=== PATIENT | male | born 1945 | race Hispanic/Latino ===

== ENCOUNTER 2019-05-01 15:15 | Emergency (ER) | payer MEDICARE ==
[~2019-05-01] VITALS: Ht 172.7 cm; Wt 94.3 kg
--- OUTSIDE RECORDS SUMMARY | 2019-05-01 15:17 | XMS REPORT | Clinical Summary ---
Author Author [facility] Address Unknown Phone Unavailable Care Team Providers Care Marketing Traffic Manager Name Role Phone Sharpless PCP Allergies No Known Allergies Medications End Date Status Medication Sig Dispensed Refills Start Date Active metFORMIN (GLUMETZA) 1000 Take 1,000 mg 0 MG (MOD) 24 hr tablet by mouth 2 (two) times daily with breakfast and dinner. Active glimepiride (AMARYL) 4 MG Take 4 mg by 0 tablet mouth every morning before breakfast. Active lisinopril Take 20 mg by 0 (PRINIVIL,ZESTRIL) 20 MG mouth daily. tablet Active atenolol (TENORMIN) 50 MG Take 50 mg by 0 tablet mouth daily. Active hydroCHLOROthiazide Take 12.5 mg 0 (MICROZIDE) 12.5 mg by mouth capsule daily. Active NIFEdipine (ADALAT CC) 60 Take 60 mg by 0 MG 24 hr tablet mouth daily. Active tamsulosin (FLOMAX) 0.4 Take 0.4 mg 0 mg Cp24 24 hr capsule by mouth daily. Active finasteride (PROSCAR) 5 Take 5 mg by 0 mg tablet mouth daily. Active aspirin 81 MG EC tablet Take 81 mg by 0 mouth daily. Active folic acid (FOLVITE) 1 MG Take 1 mg by 0 tablet mouth daily. Active omega-3 fatty Take 1 tablet 0 acids-vitamin E 1,000 mg by mouth Cap daily. Active niacin 500 MG tablet Take 500 mg 0 by mouth daily with breakfast. Active Problems Not on file Social History Date Tobacco Use Types Packs/Day Years Used Never Assessed Sex Assigned at Date Recorded Not on file Industry Job Start Date Occupation Not on file Not on file Not on file Travel End Travel History Travel Start No recent travel history available. Last Filed Vital Signs Not on file Plan of Treatment Not on file Results Not on fileafter 04/30/2018 Insurance Payer Benefit Subscriber ID Type Phone Address [facility]V
--- OUTSIDE RECORDS SUMMARY | 2019-05-01 15:17 | XMS REPORT ---
Author Author [facility] Address Unknown Phone Unavailable Care Team Providers Care Time Lock Expert Name Role Phone CHER LUBIN Unavailable Unavailable Problems This patient has no known problems. Allergies, Adverse Reactions, Alerts This patient has no known allergies or adverse reactions. Medications This patient has no known medications. Results Test Description Test Time Test Comments Text Results Atomic Results Result Comments APTT 2016-10-30 11:14:00 PARTIAL THROMBOPLASTIN TIME (CHAUNCEY) (test xkwp=154) 31.4 seconds 22.5-36.0 PROTHROMBIN TIME/[id number] 11:13:00* Test Item Value Reference Range Comments PROTIME (CHAUNCEY) (test yblk=319) 13.0 seconds 11.7-14.7 INR (BEAKER) (test qugz=598) 1.0 <=5.9 RECOMMENDED COUMADIN/WARFARIN INR THERAPY RANGESSTANDARD DOSE: 2.0 - 3.0 Inclu reji: PROPHYLAXIS for venous thrombosis, systemic embolization; TREATMENT for rafa ous thrombosis and/or pulmonary embolus.HIGH RISK: Target INR is 2.5-3.5 for pat ients with mechanical heart valves.PLATELET [id number] 11:11:00* Test Item Value Reference Range Comments PLATELET COUNT (CHAUNCEY) (test ntyr=196) 225 K/CU MM 150-430
--- NOTE | 2019-05-01 16:46 | Diagnostic Imaging Report ---
Examination: CT head without contrast Clinical Indication: Fall with head injury. Technique: Transaxial noncontrast images from the skull base through the vertex were obtained. Sagittal and coronal reformatted images were done. Dose modulation, iterative reconstruction, and/or weight based adjustment of the mA/kV was utilized to reduce the radiation dose to as low as reasonably achievable. Comparison: None. Findings: Scalp: Posterior midline scalp hematoma Bones: Intact. No fractures. No blastic or lytic lesions. Brain sulci: Appropriate for patient's age. Ventricles: Normal in size and configuration. No hydrocephalus. Extra-axial space: No abnormalities. Parenchyma: No masses, hemorrhage, or acute or chronic cortical based vascular insults. Suprasellar region: No abnormalities. Craniocervical junction: The foramen magnum is patent. No Chiari one malformation. Impression: Posterior midline scalp hematoma. No acute intracranial abnormality. Signed by: Dr. Regina Hernández M.D. on 05/01/2019 4:43 PM
[2019-05-01 17:09] VITALS: BP 133/72
== END 2019-05-01 17:14 | disposition home or self-care (01) ==
LOC: FSED 15:15
DX: S00.03XA Contusion of scalp, initial encounter (principal); W18.30XA Fall on same level, unspecified, initial encounter; Y93.89 Activity, other specified; Y92.000 Kitchen of unspecified non-institutional (private) residence as the place of occurrence of the external cause; R05 Cough; I10 Essential (primary) hypertension; E11.9 Type 2 diabetes mellitus without complications; E78.5 Hyperlipidemia, unspecified; N40.0 Benign prostatic hyperplasia without lower urinary tract symptoms
CPT/HCPCS: 70450; 80053; 81003; 93005; 99284

== ENCOUNTER 2019-10-23 16:54 | Observation (INO) | payer MEDICARE ==
[~2019-10-23] VITALS: Ht 172.7 cm; Wt 96.7 kg
[2019-10-23] MEDS ORDERED: HYDRALAZINE HCL 20 MG/ML VIAL IV ONE (17:15)
[2019-10-23] MEDS ORDERED: ASPIRIN 81 MG CHEW TAB PO ONE (17:15)
[2019-10-23] MEDS ORDERED: NITROGLYCERIN 2% OINT 1 GM PKT TOP ONE (17:15)
[2019-10-23] MEDS ORDERED: ACETAMINOPHEN 325 MG TAB PO ONE (17:15)
[2019-10-23] MEDS ORDERED: FAMOTIDINE 20 MG/2 ML VIAL IV ONE ×2 (17:15→17:29)
[2019-10-23] MEDS ORDERED: ONDANSETRON HCL INJ 2MG/ML 2ML 2 MG/ML VIAL IV PRN ×2 (17:15→19:45)
[2019-10-23] MEDS ORDERED: LISINOPRIL10 MG PO (17:18)
[2019-10-23] MEDS ORDERED: ASPIR 8181 MG (17:18)
[2019-10-23] MEDS ORDERED: NIACIN500 M2 PO (17:18)
[2019-10-23] MEDS ORDERED: NEPHRO-VITE TABL1 EA PO (17:18)
[2019-10-23] MEDS ORDERED: GLIMEPIRIDE2 MG PO (17:18)
[2019-10-23] MEDS ORDERED: METFORMIN HCL500 MG PO (17:18)
[2019-10-23] MEDS ORDERED: LOVASTATIN10 MG (17:18)
[2019-10-23] MEDS ORDERED: HYDROCHLOROTHIA25 MG (17:18)
[2019-10-23] MEDS ORDERED: FINASTERIDE5 MG PO (17:18)
[2019-10-23] MEDS ORDERED: FLOMAX0.4 MG PO (17:18)
[2019-10-23] MEDS ORDERED: ATENOLOL50 MG (17:18)
[2019-10-23] MEDS ORDERED: NIFEDIAC CC60 MG (17:18)
[2019-10-23] MEDS ORDERED: FISH OIL 1,0001 EAC2 (17:18)
[2019-10-23] MEDS ORDERED: ASPIRIN 81 MG CHEW TAB ONE (17:28)
[2019-10-23] MEDS ORDERED: HYDRALAZINE HCL 20 MG/ML VIAL ONE (17:28)
[2019-10-23] MEDS ORDERED: ONDANSETRON HCL INJ 2MG/ML 2ML 2 MG/ML VIAL ONE (17:29)
[2019-10-23] MEDS ORDERED: NITROGLYCERIN 2% OINT 1 GM PKT ONE (17:29)
[2019-10-23] MEDS ORDERED: ACETAMINOPHEN 325 MG TAB ONE (17:29)
--- NOTE | 2019-10-23 18:23 | Diagnostic Imaging Report ---
EXAM: CXR 1 [facility] DATE: 10/23/2019 12:00 AM INDICATION: ^chest pain ^[id number] ^[id number] COMPARISON: None FINDINGS: Lines and tubes: None Heart size normal. Mild atelectasis at the lung bases. No pulmonary consolidation, pleural effusion or pneumothorax. Upper abdomen unremarkable. No acute bony abnormality. IMPRESSION: No evidence for acute disease. Mild linear atelectasis at the lung bases. Signed by: Dr. Edward Gonzalez M.D. on 10/23/2019 6:20 PM
--- NOTE | 2019-10-23 18:37 | NUR ---
CALLED [facility] TO GET PT. TRANSFERRED TO [facility]. S/W [place], SHE STATES PER NUDE MODEL THEY ARE STILL ON BED SATURATION FOR MEDICAL AND TELE, SO NO BEDS AVAILABLE AT THIS TIME
--- NOTE | 2019-10-23 18:44 | NUR ---
PER PT. SEE IF [facility] HAS ANY BEDS. CALLED [facility], [facility] [place]. REQUESTED FACESHEET TO BE FAXED TO [phone]. FACESHEET FAXED REQUESTED
--- NOTE | 2019-10-23 19:08 | NUR ---
PT WOULD LIKE FOR ME TO CALL GRANDDAUGHTER ELOISE (A NURSE) AND GIVE HER ALL THE INFORMATION SHE NEEDS? CALL AND LEFT MESSAGE ON ELOISES PHONE?
--- NOTE | 2019-10-23 19:31 | NUR ---
CALLED [facility] FOR UPDATE?? STATE CALLED BED BOARD AND ARE AWAITING CALL BACK, REITERATED THAT WE CALLED 184? WAS TOLD BY DMITRY THAT THE BEDBOARD PEOPLE NEVER GOT THE FACE SHEET THAT WAS ASKED TO BE FAXED FROM US? TOLD HIM I HAD CONFIRMATION OF THEM RECEIVING THE FACE SHEET BUT WILL REFAX MORE FACE SHEETS, ALSO INQUIRED TO WHY TRANSFER CENTER DID NOT CALL US BACK AT THE 30 MIN INTERVAL TO INQUIRE ON WHETHER WE HAD EITHR FAXED THE INFO OR TO INFORM US THAT AN EXTENSION WAS NEEDED? FOR DOC TO DOC CALL BACK??
--- NOTE | 2019-10-23 19:38 | NUR ---
FACE SHEET FAXED 4 TIMES, WELL 2 CONFIRMATIONS (PROOF THAT FACESHEETS FAXED) TO [phone] (BEDBOARD).
[2019-10-23] MEDS ORDERED: ENOXAPARIN SODIUM INJ 100 MG/ML SYR SC STA (19:49)
--- NOTE | 2019-10-23 19:58 | NUR ---
[facility] CALLED FOR TRANSFER TO [facility] MIGUEL GIVEN 35-40 MIN ETA
[2019-10-23] MEDS ORDERED: DIPHENHYDRAMINE HCL INJ 50 MG/ML VIAL IV PRN (20:00)
[2019-10-23] MEDS ORDERED: ACETAMINOPHEN 325 MG TAB PO PRN (20:00)
[2019-10-23] MEDS ORDERED: ZOLPIDEM TARTRATE 5 MG TAB PO PRN (20:00)
[2019-10-23] MEDS: METOPROLOL TARTRATE 25 MG TAB PO SCH (20:16)
[2019-10-23] MEDS: FAMOTIDINE 20 MG TAB PO SCH (20:16)
[2019-10-23] MEDS ORDERED: METOPROLOL TARTRATE 50 MG TAB ONE (20:21)
[2019-10-23] MEDS ORDERED: FAMOTIDINE 20 MG TAB ONE (20:21)
[2019-10-23] MEDS ORDERED: ENOXAPARIN SODIUM INJ 100 MG/ML SYR SC ONE (20:21)
[2019-10-23] MEDS ORDERED: SIMVASTATIN 40 MG TAB PO SCH (21:00)
[2019-10-23 21:28] VITALS: BP 130/93
[2019-10-23] MEDS ORDERED: INSULIN GLARGINE 100 UNITS/ML VIAL SQ ONE (22:15)
[2019-10-23] MEDS ORDERED: DEXTROSE 50% SYRINGE 50 ML IV PRN (22:15)
[2019-10-24] VITALS (7 sets, daily range): BP systolic 133–163; BP diastolic 76–104
--- NOTE | 2019-10-24 00:49 | NUR ---
PATIENT REQUESTING [facility] FOR CARDIOLOG CONSULT, AED TRAINER ADVISED ME THAT ATTENDING HAS TO BE NOTIFIED SO THE ORDER CAN BE PLACED, THEN CALL [facility] FOR CONSULT AND CALL AND CANCEL CONSULT WITH MD OVALLES , WILL BE DONE IN THE AM DUE TO LATE ADMISSION
[2019-10-24] MEDS: NITROGLYCERIN 2% OINT 1 GM PKT TOP SCH ×3 (01:35→12:00)
--- NOTE | 2019-10-24 02:59 | NUR ---
CARDIAC ENZYMES DRAWN TAKEN TO LAB, AWAITING RESULTS
[2019-10-24 03:17] LABS: CREATINE KINASE MB 4.6 ng/mL (0-5.0)
[2019-10-24] MEDS: MORPHINE SULFATE 2 MG/ML SYR 1ML IV PRN ×2 (03:52→09:42)
--- NOTE | 2019-10-24 03:52 | NUR ---
GRANDDAUGHTER AT BEDSIDE, INFORM ME THAT PATIENT AWAKEN TO STATING CHEST PAIN RADIATING TO STOMACH, MORPHINE GIVEN, TELEMETRY READING SR 82, CARDIAC LABS PENDING
--- NOTE | 2019-10-24 06:00 | NUR ---
Diallo CANTU CALLED MADE AWARE OF CONSULT, ORDERED FOR PATIENT TO BE MADE NPO AFTER BREAKFAST THIS AM, ENDORSED TO NEXT SHIFT, REPORT GIVEN TO ONCOMING SHIFT RN, PATIENT AWAKE ALERT, REPORT MILD CHEST PAIN, RESTING COMFORTABLY IN BED WITH CALL LIGHT WITHIN REACH
[2019-10-24 06:27] LABS: CHOL/HDL RATIO 4.3 (3.9-4.7)
[2019-10-24] MEDS: INSULIN LISPRO 100 UNIT/1 ML 3ML VIAL SQ SCH ×4 (07:30→15:26)
[2019-10-24] MEDS ORDERED: ASPIRIN 325 MG TAB EC PO SCH (09:00)
[2019-10-24] MEDS: FAMOTIDINE 20 MG TAB PO SCH (10:04)
[2019-10-24] MEDS: METOPROLOL TARTRATE 25 MG TAB PO SCH ×2 (10:05→15:27)
[2019-10-24 10:44] LABS: CREATINE KINASE 259 IU/L (30-200)
--- NOTE | 2019-10-24 17:57 | Consultation ---
DATE OF CONSULTATION: 10/24/2019 REASON FOR CONSULTATION: Chest pain. HISTORY OF PRESENT ILLNESS: This is a 74-year-old male with history of hypertension, hyperlipidemia, diabetes, BPH. The patient presents to the [facility] ER with complaints of chest pain. Cardiology was consulted to evaluate the patient. Cardiac enzymes negative x2. EKG showing sinus rhythm with inverted T-waves in the lateral leads. The patient is seen in room with daughter at bedside, reports has been having left-sided chest discomfort, tightness for the past week, off and on, lasting few seconds. No associated symptoms and comes with and without activities. However, yesterday while watching TV reports the symptoms lasted little longer than usual. Therefore, he came to the ER for further evaluation. The patient reports that he sees Dr. Parada, Cardiology with [facility]. Reports having a stress test about a year ago with negative results. Currently, he is chest pain free. PAST MEDICAL HISTORY: Hypertension, diabetes, hyperlipidemia, BPH. PAST SURGICAL HISTORY: Denies any surgeries. SOCIAL HISTORY: He is a . He is retired maintenance specialist. He denies any tobacco or alcohol use. FAMILY HISTORY: Mother and father , unknown cause. However, denies any family history of CAD, stroke, cancer. HOME MEDICATIONS: Include aspirin 81 mg daily, atenolol 50 mg daily, glimepiride 4 mg daily, hydrochlorothiazide 12.5 mg daily, lisinopril 20 mg daily, lovastatin 10 mg daily, metformin 1000 mg b.i.d., niacin 500 mg daily, nifedipine 60 mg daily, fish oil 1000 mg daily, Flomax mg daily. ALLERGIES: NO KNOWN ALLERGIES. REVIEW OF SYSTEMS: GENERAL: Denies any weight changes, fatigue, weakness, fever, chills, or night sweats. SKIN: Denies any rash, sores or lumps. HEENT: Denies any nausea, vomiting, vision changes, blurred vision, double vision, epistaxis, sore throat, or swollen neck. CARDIAC: Positive for chest pain as above. Positive dyspnea on exertion. Denies any orthopnea, PND, or lower extremity edema. RESPIRATORY: Positive for dyspnea on exertion. Denies any coughing, hemoptysis. GI: Reports good appetite. Denies any nausea, vomiting, diarrhea, constipation, melena, hematemesis, or tarry bloody stools. URINARY: Positive for frequency, urgency, and hesitancy. Denies any dysuria or hematuria. VASCULAR: Denies any lower extremity edema or claudication. MUSCULOSKELETAL: Denies any muscle weakness. Positive for generalized joint pains. NEUROLOGIC: Denies any weakness, paralysis, fainting, blackouts, seizures. HEMATOLOGY: Denies any bruising or bleeding. ENDOCRINE: Denies any heat or cold intolerance, polyuria, polydipsia. PHYSICAL EXAMINATION: VITAL SIGNS: Height 68 inches, weight 213 pounds. Temperature is 96.7, pulse 80, respiratory rate 18, blood pressure 150/76, pulse ox 95% on room air. GENERAL: Appears stated age, reliable informant, in no acute distress at this time. SKIN: No rashes or bruises noted. HEENT AND NECK: Normocephalic. Pupils are equal and reactive. Extraocular movements intact. Trachea midline. Oral mucosa pink. No carotid bruit appreciated. No JVD. HEART: Regular rate and rhythm. PMI about 4th and 5th intercostal space. LUNGS: Bilateral breath sounds clear to auscultation. Good airway entry and exit. ABDOMEN: Soft, nontender, and nondistended. No organomegaly noted. MUSCULOSKELETAL: Good muscle strength throughout. No lower extremity edema noted. 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 VASCULAR: +2 bilateral radial pulses, +1 DP/PT pulses bilaterally. NEUROLOGIC: Cranial nerves 2 through 12 seem intact. LABORATORY DATA: Troponin less than 0.05, 0.03. BNP 21. Sodium 140, potassium 4.3, chloride 99, CO2 of 27, BUN 17, creatinine 0.9, glucose 22. White count 8, hemoglobin 13, hematocrit 40, platelets 229. EKG showing sinus rhythm with inverted T- waves in lateral leads. Chest x-ray report showing no acute abnormalities. ASSESSMENT: 1. Chest pain with mixed features. 2. Hypertensive urgency. 3. Hyperlipidemia. 4. Diabetes. PLAN: 1. The patient presents to [facility] with complaints of chest pain mixed features. Cardiac enzymes negative x2 thus far. 2. Discussed at length with patient and daughter regarding ischemic evaluation. We will proceed with a stress test. 3. Echo to evaluate heart function and structure. 4. Aspirin, beta-gomez, statin therapy. 5. Check lipid and TSH. 6. Further recommendations post stress test. Thank you very much for this consult. Seen and examined Discussed with patient and daughter High probability of CAD Dictated by Agusto Hernandez, DUST COLLECTOR TREATER Bridger Neslon MD DC/JAVIER /[id number] KARLA
--- NOTE | 2019-10-24 18:22 | History and Physical ---
PRIMARY CARE PHYSICIAN: Dr. Luo at [facility]. CHIEF COMPLAINT: Chest pain and hypertensive urgency. HISTORY OF PRESENT ILLNESS: This is a 74-year-old male with past medical history of hypertension, high cholesterol, and diabetes, who presented to the ER with complaints of chest pain that has been going on for about a week. He reports the pain is on and off, happens even of rest. He denies any nausea, vomiting, shortness of breath, cough, fever, chills, diaphoresis, or dizziness. He states that chest pain is to the left side, does not radiate to the arm or jaw area. Describes the pain as stabbing pain and progressively getting worse. In the ER, blood pressure was elevated, cardiac enzymes were negative, was admitted for further evaluation. PAST MEDICAL HISTORY: 1. Hypertension. 2. High cholesterol. 3. Diabetes type 2. PAST SURGICAL HISTORY: Denies any surgery. FAMILY MEDICAL HISTORY: He does not know his family medical conditions. SOCIAL HISTORY: He denies any tobacco, alcohol, or illicit drug use. ALLERGIES: NO KNOWN DRUG ALLERGIES. REVIEW OF SYSTEMS: GENERAL: No fatigue or fever. HEENT: No head trauma. LUNGS: No cough or shortness of breath CARDIOVASCULAR: Reports chest pain to the left side. GI: No nausea or vomiting. NEURO: No dizziness. MUSCULOSKELETAL: No weakness. SKIN: No rash. PSYCH: Calm. PHYSICAL EXAMINATION: VITAL SIGNS: Temperature 96.4, pulse of 84, respirations 18, blood pressure 150/103, pulse ox is 93% on room air. GENERAL: No acute distress. HEENT: Normocephalic, atraumatic. NECK: Supple. CARDIOVASCULAR: Regular rate and rhythm. LUNGS: Clear to auscultation. ABDOMEN: Soft, nontender, obese. NEUROLOGIC: Alert, awake, and oriented x3. MUSCULOSKELETAL: Moves all extremities. Mild edema noted on the lower extremities. SKIN: Dry. PSYCH: Calm. LABORATORY DATA: Troponins 0.003 and 0.001. Creatine kinase is 250, CK-MB is 4.6, blood sugar is 176, LDL is 58, HDL is 31, triglycerides 213. Chest x-ray, no evidence of acute disease. IMPRESSION: 1. Hypertensive urgency. Upon arrival, blood pressure was 189/103. He was given metoprolol and hydralazine IV. We will resume home medication. 2. Chest pain, rule out acute coronary syndrome. Troponin x3 negative. Cardiology has been consulted, going for stress test today. 3. High cholesterol. Continue statin. 4. Diabetes type 2. We will continue sliding scale insulin. 5. Deep venous thrombosis prophylaxis. SCDs. PLAN: To continue tele monitor, n.p.o. for stress test per Cardiology today. Reports the pain is improving. Has remained stable, may discharge home today. Dictated by IRENE Whitaker Ctching Atul Bassett MD MY/MODL /[id number] Seen and examined on 10/24/19. Agree with the findings and plan as documented by IRENE Jamison. MILLICENTD
--- NOTE | 2019-10-24 23:24 | Operative Report ---
DATE OF PROCEDURE: SURGEON: Bridger Nelson MD TITLE OF THE TEST: Cardiac stress test. TECHNICAL DETAILS: The protocol is Xavier with target heart rate at 125 per minute. RESULTS: 1. The patient exercised for a total of 4 minutes and 2 seconds. 2. Heart rate increased from 94 per minute to 127 per minute. 3. Blood pressure increased from 130/80 to 149/84. No EKG changes. 4. No chest pain. IMPRESSION: Negative cardiac stress test. Limitations of this negative cardiac stress test are discussed with the patient, his daughter and granddaughter over the phone, and explained the patient does have several cardiac risk factors, so if the patient develops any more symptoms, he needs to call his doctor or to come to see us or if the patient's pain is severe to go to the emergency room. They verbalized understanding. Meanwhile, the patient will continue treatment for his hypertension, diabetes, and he will be also on aspirin, etc. MD NYDIA Wallis/JAVIER /[id number]
== END 2019-10-24 17:22 | disposition home or self-care (01) ==
LOC: FSED 16:54 → ERHOLD 19:49 → IMCU 21:00
PROVIDERS: ADMIT Internal Medicine; ATTEND Internal Medicine
DX: R07.9 Chest pain, unspecified (principal); E11.65 Type 2 diabetes mellitus with hyperglycemia; I10 Essential (primary) hypertension; Z79.84 Long term (current) use of oral hypoglycemic drugs; E78.5 Hyperlipidemia, unspecified; I16.0 Hypertensive urgency
CPT/HCPCS: 36415; 71045; 80053; 80061; 82550; 82553 ×2; 82948 ×2; 83880; 84484 ×2; 85025; 93005; 93017; 93306; 96372; 99284; G0378 ×2; J0360; J1650; J1815; J2270; J2405